=== PATIENT | male | born 1980 | race Caucasian/White ===

== ENCOUNTER 2019-07-30 06:33 | Day surgery (SDC) | payer OTHER ==
[~2019-07-30] VITALS: Ht 190.5 cm; Wt 93.0 kg
[~2019-07-30 06:33] MED LIST: ALBU3IS INH; FLUT1DIS5 INH; Prednisone10 MG PO; Sudogest120 MG PO
--- NOTE | 2019-07-30 07:50 | NUR ---
PT TO RECOVERY ROOM POST PROCEDURE. PT ALERT AND ORIENTED, COOPERATIVE; DENIES PAIN POST PROCEDURE. MONITOR SB 50'S, B/P 110/67, AFEBRILE, SPO2 98% RA. R RADIAL SITE NO SWELLING/HEMATOMA, TR BAND IN PLACE. PT TAKING BREAKFAST WITHOUT PROBLEM.
--- NOTE | 2019-07-30 10:29 | NUR ---
TR BAND REMOVED FROM RIGHT WRIST, RED CLOTH DOT DRESSING APPLIED. ARM BOARD ON FOR SUPPORT. PT AMBULATES WITH STEADY GAIT. PROVIDED WITH DISCHARGE PAPERWORK, VERBALIZED UNDERSTANDING. PT ABLE TO GET DRESSED WITH NO NEEDED ASSISTANCE. IV REMOVED WITH CATH INTACT FROM [facility], PRESSURE DRESSING APPLIED. VSS. RIDE CALLED TO TRANSPORT PATIENT HOME. DENIES NEED FOR W/C RIDE TO PRIVATE VEHICLE. ENCOURAGED TO FOLLOW UP SCHEDULED WITH PROVIDER, EDER AT TIME OF DISPO.
== END 2019-07-30 10:30 | disposition home or self-care (01) ==
LOC: MHTC 06:33
PROC: 4A023N7 Measurement of Cardiac Sampling and Pressure, Left Heart, Percutaneous Approach (ICD-10-PCS; principal; 2019-07-30)
PROC: B201YZZ Plain Radiography of Multiple Coronary Arteries using Other Contrast (ICD-10-PCS; principal; 2019-07-30)
DX: I47.2 Ventricular tachycardia (principal); I47.1 Supraventricular tachycardia; I10 Essential (primary) hypertension; E78.5 Hyperlipidemia, unspecified; J45.909 Unspecified asthma, uncomplicated; I45.10 Unspecified right bundle-branch block; Z79.899 Other long term (current) drug therapy; I48.0 Paroxysmal atrial fibrillation
CPT/HCPCS: 93458; 99152; 99153; C1769; C1894; J0690; J1644; J2250; J3010; J7030; Q9967

== ENCOUNTER → 2021-03-16 | Outpatient (CLI) | payer OTHER | LOC: LAB SHORT 11:17 | DX: D48.5 Neoplasm of uncertain behavior of skin (principal); D22.5 Melanocytic nevi of trunk | CPT/HCPCS: 88305 ==

== ENCOUNTER 2023-10-23 06:40 | Day surgery (SDC) | payer OTHER ==
[~2023-10-23] VITALS: Ht 190.5 cm; Wt 96.6 kg
[2023-10-23] MEDS ORDERED: ALLEGRA ALLERG180 MG (07:22)
[2023-10-23] MEDS ORDERED: Vitamin D1000 UNI1 (07:22)
[2023-10-23] MEDS ORDERED: CULTURELLE KID1 EA13 (07:23)
[2023-10-23] MEDS ORDERED: propofoL 50 ML IV ONE (07:24)
[2023-10-23] MEDS ORDERED: Lactated Ringer's 1,000 ML IV ONE ×2 (07:24→07:42)
[2023-10-23 08:38] VITALS: BP 114/66
== END 2023-10-23 08:46 | disposition home or self-care (01) ==
LOC: ORSCSDS 06:40
PROVIDERS: Surgery
PROC: 0DBL8ZX Excision of Transverse Colon, Via Natural or Artificial Opening Endoscopic, Diagnostic (ICD-10-PCS; principal; 2023-10-23 08:00)
DX: Z12.11 Encounter for screening for malignant neoplasm of colon (principal); D12.3 Benign neoplasm of transverse colon; I48.0 Paroxysmal atrial fibrillation; J45.909 Unspecified asthma, uncomplicated; Z79.899 Other long term (current) drug therapy
CPT/HCPCS: 88305; J2704; J7120